=== PATIENT | male | born 1955 | race Hispanic/Latino ===

== ENCOUNTER 2017-12-13 06:02 | Emergency (ER) | payer BC ==
[2017-12-13 06:34] VITALS: TEMP 98.2; O2SAT 99
[2017-12-13] MEDS ORDERED: Tdap Vaccine 0.5 ml Vial (10-64 yrs) IM ONE ×2 (07:12→07:32)
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
--- NOTE | 2017-12-13 08:47 | CT ---
Date of service: 12/13/2017 PROCEDURE: CT MAXILLOFACIAL BONES WITHOUT CONTRAST HISTORY: facial pain COMPARISON: None available. TECHNIQUE: Contiguous axial CT images of the maxillofacial bones were obtained. Coronal and sagittal reformats were generated. Radiation dose: Total exam DLP = mGy-cm. This CT exam was performed using one or more of the following dose reduction techniques: Automated exposure control, adjustment of the mA and/or kV according to patient size, and/or use of iterative reconstruction technique. FINDINGS: NASAL BONES: Unremarkable. ORBITS: Unremarkable. PARANASAL SINUSES/ MASTOIDS: Clear. MAXILLA: Unremarkable. MANDIBLE/ TEMPOROMANDIBULAR JOINTS: Unremarkable. SKULL BASE: Unremarkable. TEMPORAL BONES: Middle ears and mastoid grossly unremarkable. OTHER FINDINGS: None. IMPRESSION: Unremarkable non contrast enhanced CT of the maxillofacial bones.
--- NOTE | 2017-12-13 08:47 | CT ---
Date of service: 12/13/2017 PROCEDURE: CT HEAD WITHOUT CONTRAST. HISTORY: headache COMPARISON: None available. TECHNIQUE: Axial computed tomography images were obtained through the head/brain without intravenous contrast. Radiation dose: Total exam DLP = mGy-cm. This CT exam was performed using one or more of the following dose reduction techniques: Automated exposure control, adjustment of the mA and/or kV according to patient size, and/or use of iterative reconstruction technique. FINDINGS: HEMORRHAGE: No intracranial hemorrhage. BRAIN: No mass effect or edema. No atrophy or chronic microvascular ischemic changes. VENTRICLES: Unremarkable. No hydrocephalus. CALVARIUM: Unremarkable. PARANASAL SINUSES: Unremarkable as visualized. No significant inflammatory changes. MASTOID AIR CELLS: Unremarkable as visualized. No inflammatory changes. OTHER FINDINGS: None. IMPRESSION: Normal CT of the Head.
[2017-12-13 10:54] VITALS: BP 125/80; PULSE 75; RESP 16
== END 2017-12-13 10:55 | disposition home or self-care (01) ==
LOC: H.ER 06:02
DX: S09.90XA Unspecified injury of head, initial encounter (principal); H11.30 Conjunctival hemorrhage, unspecified eye; Y04.0XXA Assault by unarmed brawl or fight, initial encounter; Y92.89 Other specified places as the place of occurrence of the external cause

== ENCOUNTER 2018-02-06 14:11 | Emergency (ER) | payer BC ==
[2018-02-06 14:49] VITALS: BP 128/78; PULSE 61; RESP 18; TEMP 98.3; O2SAT 100
--- NOTE | 2018-02-06 15:18 | ED PDOC ---
Upper Extremity Pain/Injury Time Seen by Provider: 02/06/18 14:49 Chief Complaint (Nursing): Upper Extremity Problem/Injury Chief Complaint (Provider): right shoulder pain History Per: Patient History/Exam Limitations: no limitations Onset/Duration Of Symptoms: Days (September) Current Symptoms Are (Timing): Still Present Additional Complaint(s): Donny King is a 62 year old male, with no significant past medical history, who presents to the emergency department complaining of right shoulder pain ongoing since September. Patient states at the time he was changing a tire, he pulled the tire and felt a twinge in his bicep. Patient has had pain in shoulder since then despite lifting weights. He notes difficulty abducting and states right arm feels weaker. He didn't take any OTC medications. He denies any fall on shoulder or other medical complaints. PMD: None provided. Past Medical History Reviewed: Historical Data, Nursing Documentation, Vital Signs Vital Signs: Last Vital Signs Temp 98.3 F 02/06/18 14:47 Pulse 61 02/06/18 14:47 Resp 18 02/06/18 14:47 BP 128/78 02/06/18 14:47 Pulse Ox 100 02/06/18 14:47 - Medical History PMH: No Chronic Diseases - Surgical History Surgical History: No Surg Hx - Family History Family History: States: Unknown Family Hx - Social History Current smoker - smoking cessation education provided: No Alcohol: Social Drugs: Denies - Immunization History Hx Tetanus Toxoid Vaccination: No - Home Medications Home Medications: Ambulatory Orders Medication Instructions Recorded Naproxen 375 mg PO Q8 PRN #21 tablet 02/06/18 - Allergies Allergies/Adverse Reactions: Allergies Allergy/AdvReac Type Severity Reaction Status Date / Time No Known Allergies Allergy Verified 02/06/18 14:47 Review of Systems ROS Statement: Except As Marked, All Systems Reviewed And Found Negative Musculoskeletal: Positive for: Shoulder Pain (right ) Physical Exam - Reviewed Nursing Documentation Reviewed: Yes Vital Signs Reviewed: Yes - Physical Exam Appears: Positive for: No Acute Distress Head Exam: Positive for: ATRAUMATIC, NORMAL INSPECTION, NORMOCEPHALIC Skin: Positive for: Normal Color, Warm, Dry Eye Exam: Positive for: Normal appearance, EOMI, PERRL Neck: Positive for: Normal, Painless ROM Extremity: Positive for: Other (5/5 upper strength with bicep flexion and extension.). Negative for: Normal ROM (Noted difficulty abducting shoulder past 90), Tenderness (No bony tenderness), Deformity, Swelling (or ecchymosis to upper extremities) Neurologic/Psych: Positive for: Alert, Oriented. Negative for: Motor/Sensory Deficits - ECG O2 Sat by Pulse Oximetry: 100 (RA) Pulse Ox Interpretation: Normal - Progress ED Course And Treament: SHOULDER XRY RIGHT:Date of service: 02/06/2018 PROCEDURE: Radiographs of the Right Shoulder HISTORY: shoulder injury COMPARISON: No prior. FINDINGS: BONES: No acute fracture or destructive bony lesion identified. JOINTS: No dislocation or subluxation identified. Degenerative changes are moderate at the acromioclavicular joint and mild at the glenohumeral joint. SOFT TISSUES: Normal. OTHER FINDINGS: None. IMPRESSION: No acute fracture dislocation. Degenerative changes are identified on a [id number] basis as discussed above. Medical Decision Making Medical Decision Making: Time: 14:49 Initial Impression: Shoulder pain Initial Plan: --Toradol 30 mg IM --Shoulder right [RAD] --Reevaluation Scribe Attestation: Documented by Jayy Pitt, acting as a scribe for Zehra Orozco PA-C Provider Scribe Attestation: All medical record entries made by the Scribe were at my direction and personally dictated by me. I have reviewed the chart and agree that the record accurately reflects my personal performance of the history, physical exam, medical decision making, and the department course for this patient. I have also personally directed, reviewed, and agree with the discharge instructions and disposition. Disposition - Clinical Impression Clinical Impression: Shoulder pain - Patient ED Disposition Is Patient to be Admitted: No - Disposition Referrals: Skyler Richter MD [Staff Provider] - Disposition: Routine/Home Disposition Time: 15:33 Condition: FAIR Prescriptions: Naproxen 375 mg PO Q8 PRN #21 tablet PRN Reason: Pain, Moderate (4-7) Instructions: Shoulder Pain (DC)
== END 2018-02-06 16:03 | disposition home or self-care (01) ==
LOC: H.ER 14:11
DX: M25.511 Pain in right shoulder (principal)

== ENCOUNTER 2018-07-11 05:41 | Emergency (ER) | payer BC ==
[2018-07-11 05:52] VITALS: BMI 22.7
[2018-07-11 05:57] VITALS: BP 148/91; PULSE 60; RESP 18; TEMP 98.6; O2SAT 99
--- NOTE | 2018-07-11 06:26 | ED PDOC ---
History of Present Illness History of Present Illness: 63 y/o male with no significant PMHx presents to the ED for evaluation of a dry cough associated with a tactile fever, onset 3 days ago. Patient denies any other complaints including chest pain, shortness of breath and recent travel. PMD: no provider HPI: Influenza Time Seen by Provider: 07/11/18 05:51 Chief Complaint: Cough, Cold, Congestion Chief Complaint (Provider): Cough, Cold, Congestion History Per: Patient Exam Limitations: no limitations Have you had recent travel within the past 21 days to any of: No Onset/Duration Of Symptoms: Days (x3) Symptoms include: fever, cough Sick Contacts (Context): None Past Medical History Reviewed: Historical Data, Nursing Documentation, Vital Signs Vital Signs: Last Vital Signs Temp 98.6 F 07/11/18 05:52 Pulse 60 07/11/18 05:52 Resp 18 07/11/18 05:52 BP 148/91 H 07/11/18 05:52 Pulse Ox 99 07/11/18 05:52 - Medical History PMH: No Chronic Diseases - Surgical History Surgical History: No Surg Hx - Family History Family History: States: Unknown Family Hx - Social History Current smoker - smoking cessation education provided: No - Immunization History Hx Tetanus Toxoid Vaccination: No - Home Medications Home Medications: Ambulatory Orders Medication Instructions Recorded Naproxen 375 mg PO Q8 PRN #21 tablet 02/06/18 Promethazine/Codeine 10 ml PO Q5MIN PRN #200 ml 07/11/18 [Phenergan/Codeine Oral Syrup] - Allergies Allergies/Adverse Reactions: Allergies Allergy/AdvReac Type Severity Reaction Status Date / Time No Known Allergies Allergy Verified 07/11/18 05:52 Review of Systems ROS Statement: Except As Marked, All Systems Reviewed And Found Negative Constitutional: Positive for: Fever Cardiovascular: Negative for: Chest Pain Respiratory: Positive for: Cough. Negative for: Shortness of Breath Physical Exam - Reviewed Nursing Documentation Reviewed: Yes Vital Signs Reviewed: Yes - Physical Exam Appears: Positive for: No Acute Distress Head Exam: Positive for: ATRAUMATIC, NORMOCEPHALIC Skin: Positive for: Normal Color, Warm, Dry Eye Exam: Positive for: Normal appearance, EOMI, PERRL Neck: Positive for: Normal, Painless ROM, Supple Cardiovascular/Chest: Positive for: Regular Rate, Rhythm. Negative for: Murmur Respiratory: Positive for: Normal Breath Sounds. Negative for: Respiratory Distress Gastrointestinal/Abdominal: Positive for: Normal Exam, Soft. Negative for: Tenderness Back: Positive for: Normal Inspection. Negative for: L CVA Tenderness, R CVA Tenderness, Vertebral Tenderness Extremity: Positive for: Normal ROM. Negative for: Pedal Edema, Deformity Neurological/Psych: Positive for: Awake, Alert, Oriented (x3). Negative for: Motor/Sensory Deficits Medical Decision Making Medical Decision Making: Time: 620 Impression: Cough Differentials include but not limited to pneumonia, bronchitis and URI Plan: -- CXR Two Views Scribe Attestation: Documented by Alejandro Jiménez, acting as a scribe Tyson Stanton MD. Provider Scribe Attestation: All medical record entries made by the Scribe were at my direction and personally dictated by me. I have reviewed the chart and agree that the record accurately reflects my personal performance of the history, physical exam, medical decision making, and the department course for this patient. I have also personally directed, reviewed, and agree with the discharge instructions and disposition. - ECG O2 Sat by Pulse Oximetry: 99 - Radiology X-Ray: Interpreted by Me, Viewed By Me X-Ray Interpretation: No Acute Disease Disposition - Clinical Impression Clinical Impression: Cough - Patient ED Disposition Is Patient to be Admitted: No Counseled Patient/Family Regarding: Studies Performed, Diagnosis, Need For Followup - Disposition Referrals: [facility] [Outside] Disposition: Routine/Home Disposition Time: 06:37 Condition: GOOD Additional Instructions: JONE MIR, thank you for letting us take care of you today. Your provider was Selvin Stanton MD and you were treated for COUGH. The emergency medical care you received today was directed at your acute symptoms. If you were prescribed any medication, please fill it and take as directed. It may take several days for your symptoms to resolve. Return to the Emergency Department if your symptoms worsen, do not improve, or if you have any other problems. Please contact your doctor or call one of the physicians/clinics you have been referred to that are listed on the Patient Visit Information form that is included in your discharge packet. Bring any paperwork you were given at discharge with you along with any medications you are taking to your follow up visit. Our treatment cannot replace ongoing medical care by a primary care provider outside of the emergency department. Thank you for allowing the [facility] team to be part of your care today. If you had an X-Ray or CT scan: A Radiologist will review the ED reading if any change in treatment is needed we will contact you. Prescriptions: Promethazine/Codeine [Phenergan/Codeine Oral Syrup] 10 ml PO Q5MIN PRN #200 ml PRN Reason: Cough Instructions: Viral Upper Respiratory Infection, Adult (DC)
--- NOTE | 2018-07-11 08:15 | RAD ---
Date of service: 07/11/2018 HISTORY: cough fever COMPARISON: No prior. TECHNIQUE: Chest PA and lateral views FINDINGS: LUNGS: No active pulmonary disease. PLEURA: No significant pleural effusion identified. No pneumothorax apparent. CARDIOVASCULAR: No aortic atherosclerotic calcification present. Normal cardiac size. No pulmonary vascular congestion. OSSEOUS STRUCTURES: No significant abnormalities. VISUALIZED UPPER ABDOMEN: Normal. OTHER FINDINGS: None. IMPRESSION: No active disease.
== END 2018-07-11 07:05 | disposition home or self-care (01) ==
LOC: H.ER 05:41
DX: R05 Cough (principal)